=== PATIENT | female | born 1975 | race Caucasian/White ===

== ENCOUNTER 2020-05-03 04:59 | Day surgery (SDC) | payer BC ==
[2020-05-02 13:50] VITALS: BMI 22.4
[~2020-05-03 04:59] MED LIST: BUPIVACAINE HCL 0.5% 250 MG/50 ML VIAL IJ ONE; LIDOCAINE HCL/EPINEPHRINE/PF 10 ML VIAL NR ONE; THROMBIN (BOVINE) 5,000 UNIT VIAL TP ONE
[2020-05-03] MEDS ORDERED: THROMBIN (BOVINE) 5,000 UNIT VIAL TP ONE ×2 (12:54→15:35)
[2020-05-03] MEDS ORDERED: LIDOCAINE HCL 1% EPINEPHRINE 1:200,000 30 ML VIAL (PF) ONE (12:54)
[2020-05-03] MEDS ORDERED: MIDAZOLAM HCL 2 MG/2 ML SINGLE DOSE VIAL ONE ×2 (13:03)
[2020-05-03] MEDS ORDERED: PROPOFOL 20 ML ONE (13:03)
[2020-05-03] MEDS ORDERED: ROCURONIUM BROMIDE 50 MG/5 ML SYRINGE ONE (13:03)
[2020-05-03] MEDS ORDERED: ceFAZolin SODIUM 1 GM VIAL ONE (15:02)
[2020-05-03] MEDS ORDERED: ceFAZolin SODIUM 1 GM VIAL IVPB ONE (15:10)
[2020-05-03] MEDS ORDERED: LIDOCAINE HCL/EPINEPHRINE/PF 10 ML VIAL NR ONE (15:35)
[2020-05-03] MEDS ORDERED: BUPIVACAINE HCL 0.5% 250 MG/50 ML VIAL IJ ONE (15:35)
[2020-05-03] MEDS ORDERED: NEOSTIGMINE METHYLSULFATE 0.5 MG/ML - 10 ML MDV ONE (15:39)
[2020-05-03] MEDS ORDERED: DEXAMETHASONE SOD PHOSPHATE 4 MG/1 ML VIAL ONE (15:40)
--- NOTE | 2020-05-03 16:44 | OP ---
Operative Note - Note: Operative Date: 05/03/20 Pre-Operative Diagnosis: Left thyroid nodule Operation: Left hemithyroidectomy Post-Operative Diagnosis: Same as Pre-op Surgeon: Pedro Villafana [employer] Treasurer: Lior Munoz Anesthesiologist/MONOGRAM OPERATOR: Irma Holbrook Anesthesia: General Estimated Blood Loss (mls): 5 Operative Report Dictated: Yes
--- NOTE | 2020-05-03 16:45 | SURG ---
Surgery Wood Milling Machine Hand Note Wood Milling Machine Hand: Lior Munoz PA-C Date of Service: 05/03/20 Diagnosis: Left thyroid nodule Procedure: Left hemithyroidectomy I was present for the entirety of the operative procedure. For further detail, please refer to operative report. Visit type - Case Type Case Type: Scheduled - Emergency Emergency Visit: No - New patient This patient is new to me today: Yes Date on this admission: 05/03/20 - Critical Care Critical Care patient: No
[2020-05-03 18:23] VITALS: BP 120/77; PULSE 84; TEMP 97.7
[2020-05-03] MEDS ORDERED: ONDANSETRON 4 MG/2 ML VIAL IVPUSH ONE (19:34)
[2020-05-03] MEDS ORDERED: ONDANSETRON 4 MG/2 ML VIAL ONE (19:35)
--- NOTE | 2020-05-04 10:02 | OP ---
DATE OF OPERATION: 05/03/2020 SURGICAL ATTENDING: Lashawn Araiza MD SENIOR COMMUNICATIONS ENGINEER: Lior Munoz PA-C PREOPERATIVE DIAGNOSIS: Thyroid nodules. POSTOPERATIVE DIAGNOSIS: Thyroid nodules. ANESTHESIA: General endotracheal. PROCEDURE: Left hemithyroidectomy and neck ultrasound. DESCRIPTION OF PROCEDURE: The patient was taken into the operating room, placed in supine position, endotracheally intubated. Neck ultrasound was performed showing a number of nodules bilaterally in the thyroid gland, the largest one in the left lobe measuring 2 cm and somewhat irregular in appearance. No adenopathy was seen. The neck was then prepped and draped in the usual sterile fashion. Local anesthesia was administered. A horizontal incision was made in the anterior mid neck and carried down through subcutaneous tissues and platysma. Subplatysmal flaps were raised superiorly and inferiorly, and flap hooks were placed for exposure. The median raphe was incised, and the left-sided strap muscles were elevated off the thyroid gland. The recurrent laryngeal nerve, superior laryngeal nerve, and parathyroid glands were identified and preserved. The posterior, superior, and inferior attachments of the left thyroid lobe were transected. The left thyroid lobe was then lifted off of the trachea and the isthmus transected. In this way the left thyroid lobe was removed. It was checked for parathyroid tissue and none was found. It was then sent to pathology for permanent evaluation. Valsalva maneuver was performed and hemostasis was assured. Thrombin and Gelfoam were placed in the wound. The wound was then closed in 3 layers. Dermabond was placed. Patient was then awakened, extubated, and taken to recovery in stable condition. Dr. Araiza, the attending surgeon, was present throughout the entire procedure. LASHAWN ARAIZA M.D. [id number]
--- NOTE | 2020-05-10 11:14 | PATH ---
Surgical Pathology Report Patient Name: PAULA WELCH [facility]. Rec. #: [id number] /Age/Gender: 1975 (Age: 45) / F Account: [id number] Location: [facility] SURGICAL Taken: 05/03/2020 Received: 05/06/2020 Reported: 05/10/2020 Physicians: Pedro Villafana M.D. 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 THE TUMOR IS COMPLETELY EXCISED. NODULAR GOITER IS PRESENT IN THE BACKGROUND. 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 The tumor is best classified as NIFTP. The resection margin is free of tumor. Intradepartmental case reviewed with concordance on diagnosis, 05/10/2020. Electronically Signed Niels Brantley M.D. Addendum Reported: 05/13/[address] Villafana's office confirmed receipt of faxed report, 05/13/2020. Gross Description Specimen received fresh, labeled "left thyroid lobe", consists of a thyroid tissue weighing 7 grams and measures 3.7 x 2.5 x 1.6cm. The possible isthmus margin is inked green and the rest of the thyroid tissue is inked blue. Serial sections revealed a well circumscribed nodule with homogeneous cut surface. No definitive capsule is seen. The nodule measures1.2cm in largest dimension. The rest of the thyroid tissue appears to be unremarkable. Entire specimen submitted in 7 cassettes, with the nodule in cassette 1 to 4. KWS/05/06/2020 analia/05/06/2020
== END 2020-05-03 19:50 | disposition home or self-care (01) ==
LOC: JASU-SURG 04:59
PROVIDERS: ATTEND Surgery
PROC: 0GTG0ZZ Resection of Left Thyroid Gland Lobe, Open Approach (ICD-10-PCS; principal; 2020-05-03 13:30)
DX: E04.1 Nontoxic single thyroid nodule (principal)
CPT/HCPCS: 84703; 88307-TC; 94760